=== PATIENT | female | born 1975 | race Caucasian/White ===

== ENCOUNTER 2017-12-07 04:39 | Emergency (ER) | payer MEDICAID, OTHER ==
[~2017-12-07] VITALS: Ht 177.8 cm; Wt 140.5 kg
[~2017-12-07 04:39] MED LIST: HYDR-3533 PO; IBUP-238 PO
[2017-12-07 04:46] VITALS: BP 224/105; PULSE 63; RESP 20; TEMP 98.8; O2SAT 97
[2017-12-07] MEDS ORDERED: SODIUM CHLOR 0.9% 1000 ML INJ 1,000 ML IV ONE (04:54)
--- NOTE | 2017-12-07 04:58 | PD ---
HPI Chief Complaint: Flank/Kidney Pain Time Seen by Provider: 04:56 Travel History International Travel<30 days: No Contact w/Intl Traveler<30days: No Traveled to known affect area: No History of Present Illness HPI 42-year-old female presents to the emergency department by private transportation the care of her spouse for complaint of severe right flank pain radiating to the right lower abdomen. Symptoms sudden onset at 12 midnight and unremitting. Symptoms come and go in intensity. Patient had associated nausea. Patient recently completed her menstrual cycle and has noted some spotting but is not sure if she has had hematuria. No fever chills. No prior history of kidney stones. Patient unable to find comfortable position. Laying back worsening symptoms. PFSH Past Medical History Narrative Medical ; nursing notes reviewed Diminished Hearing: No Immunizations Current: No : 4 Para: 4 Tubal Ligation: Yes Social History Alcohol Use: No Tobacco Use: No Substance Use: No Allergies-Medications (Allergen,Severity, Reaction): Coded Allergies: No Known Allergies (Verified Adverse Reaction, Unknown, 12/07/17) Reported Meds & Prescriptions Reported Meds & Active Scripts Active Ibuprofen 800 Mg Tab 800 Mg PO Q8H PRN Percocet (Oxycodone-Acetaminophen) 5-325 mg Tab 1 Tab PO Q6H PRN Flomax (Tamsulosin HCl) 0.4 Mg Cap 0.4 Mg PO HS Zofran Odt (Ondansetron Odt) 4 Mg Tab 4 Mg SL Q6HR PRN Motrin (Ibuprofen) 800 Mg Tab 800 Mg PO Q8 PRN Lortab 5 mg/325 mg (Hydrocodone/Acetaminophen 5 mg/325 mg) 1 Tab 1 Tab PO Q6H PRN Review of Systems Except as stated in HPI: all other systems reviewed are Neg Physical Exam Narrative GENERAL: Well-developed well-nourished female in obvious discomfort no respiratory distress SKIN: Warm and dry. HEAD: Normocephalic. EYES: No scleral icterus. No injection or drainage. NECK: Supple, trachea midline. No JVD or lymphadenopathy. CARDIOVASCULAR: Regular rate and rhythm without murmurs, gallops, or rubs. RESPIRATORY: Breath sounds equal bilaterally. No accessory muscle use. GASTROINTESTINAL: Abdomen soft, non-tender, nondistended. MUSCULOSKELETAL: No cyanosis, or edema. BACK: Nontender without obvious deformity. Right sided CVA tenderness. Data Data Last Documented VS Vital Signs Date Time Temp Pulse Resp B/P (MAP) Pulse Ox O2 Delivery O2 Flow Rate FiO2 12/07/17 04:46 98.8 63 20 224/105 (144) 97 Orders Orders Complete Blood Count With Diff (12/07/17 04:54) Comprehensive Metabolic Panel (12/07/17 04:54) Urinalysis - C+S If Indicated (12/07/17 04:54) Ed Urine Pregnancytest Poc (12/07/17 04:54) Ct Abd/Pel W/O Iv Contrast (12/07/17 04:54) Ecg Monitoring (12/07/17 04:54) Iv Access Insert/Monitor (12/07/17 04:54) Sodium Chloride 0.9% Flush (Ns Flush) (12/07/17 05:00) Sodium Chlor 0.9% 1000 Ml Inj (Ns 1000 M (12/07/17 04:54) Morphine Inj (Morphine Inj) (12/07/17 05:00) Metoclopramide Inj (Reglan Inj) (12/07/17 05:00) Ketorolac Inj (Toradol Inj) (12/07/17 05:30) Promethazine Inj (Phenergan Inj) (12/07/17 05:30) Tamsulosin (Flomax) (12/07/17 06:30) Labs Laboratory Tests Test 12/07/17 05:04 White Blood Count 6.9 TH/MM3 Red Blood Count 4.45 MIL/MM3 Hemoglobin 12.3 GM/DL Hematocrit 37.9 % Mean Corpuscular Volume 85.2 FL Mean Corpuscular Hemoglobin 27.5 PG Mean Corpuscular Hemoglobin Concent 32.3 % Red Cell Distribution Width 13.9 % Platelet Count 291 TH/MM3 Mean Platelet Volume 7.6 FL Neutrophils (%) (Auto) 64.8 % Lymphocytes (%) (Auto) 24.0 % Monocytes (%) (Auto) 6.9 % Eosinophils (%) (Auto) 4.0 % Basophils (%) (Auto) 0.3 % Neutrophils # (Auto) 4.4 TH/MM3 Lymphocytes # (Auto) 1.7 TH/MM3 Monocytes # (Auto) 0.5 TH/MM3 Eosinophils # (Auto) 0.3 TH/MM3 Basophils # (Auto) 0.0 TH/MM3 CBC Comment DIFF FINAL Differential Comment Urine Color YELLOW Urine Turbidity CLOUDY Urine pH 5.5 Urine Specific [place] GREATER/EQUAL 1.030 Urine Protein NEG mg/dL Urine Glucose (UA) NEG mg/dL Urine Ketones NEG mg/dL Urine Occult Blood LARGE Urine Nitrite NEG Urine Bilirubin NEG Urine Urobilinogen 0.2 MG/DL Urine Leukocyte Esterase NEG Urine RBC 100-200 /hpf Urine WBC 3-5 /hpf Urine Squamous Epithelial Cells 0-5 /hpf Urine Bacteria NONE /hpf Microscopic Urinalysis Comment CULT NOT INDICATED Blood Urea Nitrogen 23 MG/DL Creatinine 0.79 MG/DL Random Glucose 119 MG/DL Total Protein 7.7 GM/DL Albumin 3.7 GM/DL Calcium Level 9.4 MG/DL Alkaline Phosphatase 76 U/L Aspartate Amino Transf (AST/SGOT) 18 U/L Alanine Aminotransferase (ALT/SGPT) 27 U/L Total Bilirubin 0.3 MG/DL Sodium Level 138 MEQ/L Potassium Level 3.8 MEQ/L Chloride Level 106 MEQ/L Carbon Dioxide Level 25.3 MEQ/L Anion Gap 7 MEQ/L Estimat Glomerular Filtration Rate 79 ML/MIN MDM Medical Decision Making Medical Screen Exam Complete: Yes Emergency Medical Condition: Yes Medical Record Reviewed: Yes Interpretation(s) CBC & BMP Diagram 12/07/17 05:04 Total Protein 7.7, Albumin 3.7, Calcium Level 9.4, Alkaline Phosphatase 76, Aspartate Amino Transf (AST/SGOT) 18, Alanine Aminotransferase (ALT/SGPT) 27, Total Bilirubin 0.3 Vital Signs Date Time Temp Pulse Resp B/P (MAP) Pulse Ox O2 Delivery O2 Flow Rate FiO2 12/07/17 04:46 98.8 63 20 224/105 (144) 97 UA: large blood, positive RBC's POC preg: negative Last Impressions Abdomen/Pelvis CT 12/07/17 6913 Signed Impressions: CONCLUSION: 1. 3 x 4 mm distal right ureteral stone just above the UVJ Differential Diagnosis Renal colic obstructive uropathy cholecystitis pyelonephritis ruptured ovarian cyst ectopic ; also to consider appendicitis, aaa, dissection, perforated viscus Narrative Course IV access obtained specimens collected and sent for resulting patient administered morphine 4 mg IV Reglan to IV fluids and a stat CT abdomen pelvis noncontrast ordered Patient POC preg negative administered Toradol 30 mg IV @ 5:[address]; cbc wnl, UA large blood; pain decreased to 3/10 down from 10/10. Imaging report pending, CT c/w distal right ureter stone w/ hydroureter and hydronephrosis estimate 4-5mm stone Diagnosis Primary Impression: Renal colic on right side Additional Impressions: Hydronephrosis due to obstruction of ureter Right nephrolithiasis Referrals: Urologist call for appointment Patient Instructions: General Instructions, Narcotic given in the ED Additional Instructions: Increase fluid hydration Strain urine Take medications as prescribed as needed for pain Return to the emergency department for any concerns or change in condition Follow-up with urologist on-call urologist Dr. Whitmore Follow up with your primary care provider May take ibuprofen/advil/motrin 800 mg as often as every 8 hours as needed for pain associated with inflammation Monitor temperature for fever take acetaminophen/to every 4 hours as needed for fever 100.4F or greater Med/Other Pt SpecificInfo: Prescription(s) given Scripts Ibuprofen (Ibuprofen) 800 Mg Tab 800 MG PO Q8H Y for PAIN GREATER THAN 5, #12 TAB 0 Refills Prov: Ritika Mendenhall MD 12/07/17 Oxycodone-Acetaminophen (Percocet) 5-325 mg Tab 1 TAB PO Q6H Y for PAIN, #10 TAB 0 Refills Prov: Ritika Mendenhall MD 12/07/17 Tamsulosin (Flomax) 0.4 Mg Cap 0.4 MG PO HS for Manage Prostate Problems, #7 CAP 0 Refills Prov: Ritika Mendenhall MD 12/07/17 Ondansetron Odt (Zofran Odt) 4 Mg Tab 4 MG SL Q6HR Y for Nausea/Vomiting, #10 TAB 0 Refills Prov: Ritika Mendenhall MD 12/07/17 Disposition: 01 DISCHARGE HOME Condition: Stable Ritika Mendenhall MD Dec 07, 2017 04:58
[2017-12-07] MEDS ORDERED: METOCLOPRAMIDE HCL 10 MG/2 ML VIAL IV PUSH ONE (05:00)
[2017-12-07] MEDS ORDERED: MORPHINE SULFATE 4 MG/ML INJ IV PUSH ONE (05:00)
[2017-12-07] MEDS ORDERED: SODIUM CHLORIDE 0.9% FLUSH 10 ML FLUSH IVF PRN (05:00)
[2017-12-07 05:12] LABS: BILIRUBIN, URINE NEG (NEG); BLOOD, URINE LARGE (NEG); GLUCOSE,URINE NEG (NEG); KETONE, URINE NEG (NEG); NITRITE,URINE NEG (NEG); PH, URINE 5.5 (5.0-8.5); URINE COLOR YELLOW (YELLW/STRAW); URINE LEUKOCYTE ESTERASE NEG (NEG)
[2017-12-07 05:13] LABS: AUTOMATED NEUTROPHIL # 4.4 TH/MM3 (1.8-7.7); BASOPHIL % 0.3 % (0.0-2.0); EOSINOPHIL # 0.3 TH/MM3 (0-0.4); HEMATOCRIT 37.9 % (35.0-46.0); HEMOGLOBIN 12.3 GM/DL (11.6-15.3); LYMPHOCYTE # 1.7 TH/MM3 (1.0-4.8); MEAN CELL VOLUME 85.2 FL (80.0-100.0); MEAN CORPUSCULAR HEMOGLOBIN 27.5 PG (27.0-34.0); MEAN CORPUSCULAR HGB CONC 32.3 % (32.0-36.0); MEAN PLATELET VOLUME 7.6 FL (7.0-11.0); MONO % 6.9 % (0.0-8.0); MONOCYTE # 0.5 TH/MM3 (0-0.9); NEUT % 64.8 % (16.0-70.0); PLATELET COUNT 291 TH/MM3 (150-450); RED BLOOD COUNT 4.45 MIL/MM3 (4.00-5.30); RED CELL DISTRIBUTION WIDTH 13.9 % (11.6-17.2); WHITE BLOOD COUNT 6.9 TH/MM3 (4.0-11.0)
[2017-12-07 05:17] LABS: RBC, URINE 100-200 /hpf (0-3); SQUAMOUS EPITHELIAL CELL URINE 0-5 /hpf (0-5)
[2017-12-07 05:22] LABS: CHLORIDE 106 MEQ/L (98-107); SODIUM (NA) 138 MEQ/L (136-145)
[2017-12-07] MEDS: PROMETHAZINE INJ 25 MG/ML VIAL IM ONE ×2 (05:22→05:30)
[2017-12-07 05:25] LABS: CALCIUM 9.4 MG/DL (8.5-10.1)
[2017-12-07 05:26] LABS: ALBUMIN 3.7 GM/DL (3.4-5.0); BICARBONATE 25.3 MEQ/L (21.0-32.0); BLOOD UREA NITROGEN 23 MG/DL (7-18); GLUCOSE,RANDOM 119 MG/DL (74-106)
[2017-12-07 05:29] LABS: ALT (GPT) 27 U/L (10-53); AST (GOT) 18 U/L (15-37); CREATININE 0.79 MG/DL (0.50-1.00); GLOMERULAR FILTRATION RATE 79 ML/MIN (>89)
[2017-12-07 05:30] LABS: TOTAL BILIRUBIN ADULT 0.3 MG/DL (0.2-1.0); TOTAL PROTEIN 7.7 GM/DL (6.4-8.2)
[2017-12-07] MEDS ORDERED: KETOROLAC TROMETHAMINE 30 MG/ML (IVP) VIAL IV PUSH ONE (05:30)
[2017-12-07 05:32] LABS: ALKALINE PHOSPHATASE 76 U/L (45-117)
[2017-12-07] MEDS ORDERED: IBUP1TAB7 PO (06:19)
[2017-12-07] MEDS ORDERED: TAMS5CAP PO (06:19)
[2017-12-07] MEDS ORDERED: ZOFR4TAB3 SL (06:19)
[2017-12-07] MEDS ORDERED: PERC5TAB12 PO (06:19)
--- NOTE | 2017-12-07 06:25 | RADRPT ---
EXAM DATE: 12/07/2017 5:39 AM EDT AGE/SEX: 42 years / Female INDICATIONS: Right flank pain; possible renal calculi. CLINICAL DATA: This is the patient's initial encounter. Patient reports that signs and symptoms have been present for 1 day and indicates a pain score of 10/10. MEDICAL/SURGICAL HISTORY: None. Tubal ligation. RADIATION DOSE: 25.83 CTDI (mGy) ; Patient body habitus COMPARISON: No prior exams available for comparison. TECHNIQUE: Multiple contiguous axial images were obtained through the abdomen. Images were obtained using multiple row detector helical technique. Using automated exposure control and adjustment of the mA and/or kV according to patient size, radiation dose was kept as low as reasonably achievable to o btain optimal diagnostic quality images. DICOM format image data is available electronically for rev iew and comparison. FINDINGS: Lower Lungs: The visualized lower lungs are clear. Liver: The liver has a homogeneous density without space-occupying lesion. There is no dilation of th e biliary tree. Spleen: Homogeneous density without enlargement. Pancreas: Unremarkable without mass or calcification. Kidneys: There is a 3 x 4 mm calcification in the distal right ureter just above the right UVJ. Ther e is some perinephric stranding around the right kidney. Left kidney is unremarkable. Adrenal Glands: Unremarkable. Aorta: The aorta and proximal iliac vessels are grossly unremarkable without aneurysmal dilation. Bowel/Mesentery: The bowel loops are grossly unremarkable. The cecum and sigmoid colon have a normal configuration. Abdominal Wall: Intact. Retroperitoneum: No evidence of adenopathy in the retrocrural, para-aortic, or deep pelvic regions. Bladder: Contours are smooth. Reproductive Organs: No abnormal masses or calcifications seen. Inguinal: The inguinal region is unremarkable without evidence of adenopathy. Bony Structures: Unremarkable. CONCLUSION: 1. 3 x 4 mm distal right ureteral stone just above the UVJ Electronically signed by: Ney Richmond MD 12/07/2017 6:24 AM EDT
[2017-12-07] MEDS ORDERED: TAMSULOSIN HCL 0.4 MG CAP PO ONE (06:30)
[2017-12-07 06:45] VITALS: BP 128/75
== END 2017-12-07 06:49 | disposition home or self-care (01) ==
LOC: PHED 04:39
DX: N23 Unspecified renal colic (principal); N13.2 Hydronephrosis with renal and ureteral calculous obstruction
CPT/HCPCS: 74176; 80053; 81001; 84703; 85025; 96361; 96374; 96375; 99284; J1885; J2270; J2765; J7030; J2550